=== PATIENT | female | born 1975 | race Caucasian/White ===

== ENCOUNTER → 2016-06-23 | Outpatient (CLI) | payer OTHER ==
--- NOTE | 2016-06-23 09:18 | MM ---
Reason for exam: additional evaluation requested from prior study. Last mammogram was performed 1 year and 3 months ago. History: Patient is postmenopausal and has history of other cancer at age 26. Physical Findings: Nurse Summary: 0.5cm nodule in the left breast at 2 o'clock (nurse dw). MG 3D Diag Mammo W/Cad SUSHILA Bilateral CC and MLO view(s) were taken. Prior study comparison: April 03, 2015, bilateral MG 3d work up w/cad SUSHILA. March 17, 2015, bilateral MG screening mammo w CAD. There are scattered fibroglandular densities. No significant new findings when compared with previous films. These results were verbally communicated with the patient and result sheet given to the patient on 06/23/16. ASSESSMENT: Benign, BI-RAD 2 RECOMMENDATION: Routine screening mammogram of both breasts in 1 year.
--- NOTE | 2016-06-23 09:19 | USB ---
Reason for exam: additional evaluation requested from prior study. History: Patient is postmenopausal and has history of other cancer at age 26. US Breast Limited LT Left breast ultrasound demonstrates no cystic or solid lesion seen at 2 o'clock BB. These results were verbally communicated with the patient and result sheet given to the patient on 06/23/16. ASSESSMENT: Benign, BI-RAD 2 RECOMMENDATION: Routine screening mammogram of both breasts in 1 year.
== END | disposition home or self-care (01) ==
LOC: RADMAMWWP 06:45
PROVIDERS: ATTEND Family Medicine
DX: R92.8 Other abnormal and inconclusive findings on diagnostic imaging of breast (principal)
CPT/HCPCS: 76642; G0204; G0279

== ENCOUNTER → 2016-12-08 | Outpatient (CLI) | payer OTHER ==
--- NOTE | 2016-12-08 09:47 | MR ---
EXAMINATION TYPE: MR angio head wo con DATE OF EXAM: 12/08/2016 COMPARISON: NONE HISTORY: visual changes, headaches TECHNIQUE: Utilizing 3-D [id number] intracranial MRA of the [place] was performed. FINDINGS: The vertebrobasilar and carotid systems are patent. There is no sizable aneurysm or vascular malform ation. A1 segment of the right anterior cerebral artery is somewhat diminutive. Left vertebral arter y dominant. IMPRESSION: 1. No evidence of vascular malformation or sizable aneurysm.
--- NOTE | 2016-12-08 09:55 | MR ---
EXAMINATION TYPE: MR brain wo con DATE OF EXAM: 12/08/2016 COMPARISON: 08/18/2011 HISTORY: visual changes , headaches T1-weighted sagittal, T2, FLAIR, and diffusion axial, and T2 coronal coronal views of the brain are s ubmitted. There is no evidence of acute ischemia. The ventricles, basal cisterns, and sulci overlying the conv exities are consistent with the patient's age. There is no mass effect. Craniocervical junction maintained. Sella turcica has a normal appearance. No cerebellopontine angle mass. There is a nasal septal deviation and changes of mild chronic sinusit is. White matter: There is a single punctate area of abnormal signal in the right parietal white matter a dditional lesion within the external capsule on the right. IMPRESSION: 1. No acute intracranial process. 2. There are 2 nonspecific punctate areas of abnormal signal within the white matter.
== END | disposition home or self-care (01) ==
LOC: RADMRIMAIN 08:40
PROVIDERS: ATTEND Psychiatry & Neurology Neurology
DX: I67.89 Other cerebrovascular disease (principal); R51 Headache; H53.8 Other visual disturbances
CPT/HCPCS: 70544; 70551

== ENCOUNTER → 2016-12-10 | Outpatient (CLI) | payer OTHER ==
--- NOTE | 2016-12-10 22:07 | MR ---
EXAMINATION TYPE: MR santi sandoval con DATE OF EXAM: 12/10/2016 5:57 PM COMPARISON: 06/10/2014 HISTORY: Headaches, Back Pain, Follow Up from Previous MRI on PACS Multiplanar MultiSpin echo imaging of the cervical spine was performed. Comparison: none C2-C3: No evidence for degenerative disc disease. No disc bulge/herniation or protrusion. No Canal stenosis. Foramina are patent bilaterally. C3-C4: No evidence for degenerative disc disease. No disc bulge/herniation or protrusion. No Canal stenosis. Foramina are patent bilaterally. C4-C5: No evidence for degenerative disc disease. No disc bulge/herniation or protrusion. No Canal stenosis. Foramina are patent bilaterally. C5-C6: No evidence for degenerative disc disease. Borderline to minimal posterior central disc bulge. No herniation protrusion or central stenosis. Foramina are patent bilaterally. C6-C7: No evidence for degenerative disc disease. Borderline to minimal posterior central disc bulge. No herniation protrusion or central stenosis. Foramina are patent bilaterally. C7-T1: No evidence for degenerative disc disease. No disc bulge/herniation or protrusion. No Canal stenosis. Foramina are patent bilaterally. Cervical segments are intact. There is normal alignment. Cervical spinal cord is of normal signal. Craniovertebral junction relationships are within normal limits. IMPRESSION: 1. Minimal posterior disc bulging at C5-6 and C6-7. Otherwise unremarkable examination. EXAMINATION TYPE: MR santi sandoval con DATE OF EXAM: 12/10/2016 5:57 PM COMPARISON: NONE HISTORY: Headaches, Back Pain, Follow Up from Previous MRI on PACS Multiplanar, MultiSpin echo imaging of the lumbar spine was performed. L1-L2: Normal disc appearance without desiccation. No herniation, protrusion or disc bulging. No ca nal stenosis is present. Foramina are patent bilaterally. L2-L3: Normal disc appearance without desiccation. No herniation, protrusion or disc bulging. No ca nal stenosis is present. Foramina are patent bilaterally. L3-L4: Moderate disc desiccation. Circumferential disc bulge posterocentrally with mild effacement ve ntral thecal sac. Facet joint arthropathy with bilateral foraminal encroachment left much greater godfrey n right. L4-L5: Moderate disc desiccation. Left paracentral disc protrusion effaces the ventral thecal sac and results in left lateral recess stenosis. Moderate to severe bilateral foraminal encroachment. No mario dence for central stenosis. Facet joint arthropathy. L5-S1: Mild disc desiccation. Smaller posterocentral disc protrusion mildly effaces the ventral theca l sac. No evidence for central stenosis or lateral recess stenosis. Facet joint arthropathy contribut es to mild bilateral foraminal encroachment. Lumbar segments are intact. No paraspinal masses are identified. Conus medullaris has a normal appe arance. IMPRESSION: 1. Degenerative disc disease as discussed. 2. Multilevel foraminal encroachment. 3. L4-5 left paracentral disc protrusion with left lateral recess stenosis.
== END | disposition home or self-care (01) ==
LOC: RADMRIMAIN 16:52
PROVIDERS: ATTEND Psychiatry & Neurology Neurology
DX: M48.06 Spinal stenosis, lumbar region (principal); M50.222 Other cervical disc displacement at C5-C6 level; M51.36 Other intervertebral disc degeneration, lumbar region; M51.26 Other intervertebral disc displacement, lumbar region
CPT/HCPCS: 72141; 72148

== ENCOUNTER 2017-01-05 10:13 | Day surgery (SDC) | payer OTHER ==
[2017-01-04 10:53] VITALS: BMI 28.3
[~2017-01-05 10:13] MED LIST: LIDOCAINE 1% 20 ML VIAL (10MG/ML) FOR IV START INTRADERMA PRN
[2017-01-05 11:02] VITALS: RESP 16; TEMP 98.2
[2017-01-05] MEDS: LACTATED RINGERS 1,000 ML IV SCH ×2 (11:16→11:27)
[2017-01-05] MEDS ORDERED: PROPOFOL 10 MG/ML 100 ML VIAL IV ONE (11:29)
[2017-01-05] MEDS ORDERED: MIDAZOLAM 2 MG/2 ML VIAL ONE (11:29)
[2017-01-05] MEDS ORDERED: fentaNYL (PF) 50 MCG/ML 2 ML AMP ONE (11:29)
--- NOTE | 2017-01-05 11:54 | P.PCN ---
Date of Procedure: 01/05/17 Preoperative Diagnosis: Postoperative Diagnosis: Procedure(s) Performed: BRIEF HISTORY: Patient is a 41-year-old pleasant white female, scheduled for an elective colonoscopy as a part of evaluation of lower abdominal pain, change in bowel habits and chronic intermittent diarrhea for the last several years duration. Recently has been having some rectal prolapse also. She has occasional rectal bleeding. PROCEDURE PERFORMED: Colonoscopy With biopsy PREOPERATIVE DIAGNOSIS: Chronic diarrhea, lower abdominal pain and intermittent rectal prolapse IV sedation per Anesthesia. PROCEDURE: After informed consent was obtained, the patient, was brought into the endoscopy unit. IV sedation was administered by Anesthesia under continuous monitoring. Digital rectal examination was normal. Initially the Olympus CF- 160 flexible video colonoscope was then inserted in the rectum, gradually advanced into the cecum without any difficulty. Careful examination was performed as the scope was gradually being withdrawn. Ileocecal valve and the appendiceal orifice were visualized and appeared normal. Prep was excellent. Terminal ileum appeared normal. Mucosa of the cecum, ascending colon, transverse colon, descending colon, sigmoid colon, and rectum appeared normal. random biopsies were done from ascending and descending colon to rule out microscopic/collagenous colitis. Retroflexion was performed in the rectum and no lesions were seen. The patient tolerated the procedure well. IMPRESSION: Normal-appearing colon from rectum to cecum with no evidence of colitis or colon rectal neoplasia. RECOMMENDATIONS: Findings of this examination were discussed with the patient as well as her family. She was advised to follow with the biopsy results. should be seen in the office in 3-4 weeks.. Implants: Indications for Procedure: Operative Findings: Description of Procedure:
[2017-01-05 12:15] VITALS: BP 126/77; PULSE 90
== END 2017-01-05 12:30 | disposition home or self-care (01) ==
LOC: ORWHC2ENDO 10:13
PROVIDERS: ATTEND Internal Medicine Gastroenterology
DX: R10.30 Lower abdominal pain, unspecified (principal); K52.9 Noninfective gastroenteritis and colitis, unspecified; K62.5 Hemorrhage of anus and rectum; R19.4 Change in bowel habit; K62.3 Rectal prolapse; J45.909 Unspecified asthma, uncomplicated; F32.9 Major depressive disorder, single episode, unspecified; E07.9 Disorder of thyroid, unspecified; Z88.0 Allergy status to penicillin; Z79.899 Other long term (current) drug therapy; Z88.1 Allergy status to other antibiotic agents
CPT/HCPCS: 45380; 88305

== ENCOUNTER → 2017-03-04 | Outpatient (CLI) | payer OTHER ==
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
--- NOTE | 2017-03-04 15:13 | US ---
EXAMINATION TYPE: US venous doppler duplex LE RT DATE OF EXAM: 03/04/2017 2:31 PM COMPARISON: NONE CLINICAL HISTORY: R60.0 EDEMA. Right popliteal fossa pain x 4 days post right arm spider bite. SIDE PERFORMED: Right TECHNIQUE: The lower extremity deep venous system is examined utilizing real time linear array sonog tylor with graded compression, Doppler sonography and color-flow sonography. VESSELS IMAGED: Common Femoral Vein Deep Femoral Vein Greater Saphenous Vein * Femoral Vein Popliteal Vein Small Saphenous Vein * Proximal Calf Veins (* superficial vessels) Right Leg: Negative for DVT Grayscale, color Doppler, spectral Doppler imaging performed of the deep veins of the lower extremiti es. There is normal flow, compressibility, vascular waveforms. IMPRESSION: No sonographic evidence of deep venous thrombosis within the right lower extremity.
== END | disposition home or self-care (01) ==
LOC: RADUSWWP 12:11
PROVIDERS: ATTEND Family Medicine
DX: R60.0 Localized edema (principal); M79.645 Pain in left finger(s)

== ENCOUNTER 2017-11-04 22:44 | Emergency (ER) | payer OTHER ==
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
[2017-11-05 00:18] VITALS: BP 157/92; PULSE 88; RESP 18; TEMP 98.2
== END 2017-11-05 00:19 | disposition home or self-care (01) ==
LOC: EC 22:44
DX: S80.02XA Contusion of left knee, initial encounter (principal); S80.11XA Contusion of right lower leg, initial encounter; S80.12XA Contusion of left lower leg, initial encounter; M54.9 Dorsalgia, unspecified; S80.211A Abrasion, right knee, initial encounter; J45.909 Unspecified asthma, uncomplicated; M19.90 Unspecified osteoarthritis, unspecified site; E07.9 Disorder of thyroid, unspecified; F90.9 Attention-deficit hyperactivity disorder, unspecified type; F41.9 Anxiety disorder, unspecified; F32.9 Major depressive disorder, single episode, unspecified; Z85.41 Personal history of malignant neoplasm of cervix uteri; Z79.891 Long term (current) use of opiate analgesic; Z79.899 Other long term (current) drug therapy; Z88.2 Allergy status to sulfonamides; Z88.0 Allergy status to penicillin; Y03.0XXA Assault by being hit or run over by motor vehicle, initial encounter; Y92.89 Other specified places as the place of occurrence of the external cause
CPT/HCPCS: 72100; 99284

== ENCOUNTER → 2017-11-09 | Outpatient (CLI) | payer OTHER ==
--- NOTE | 2017-11-10 14:39 | MM ---
Reason for exam: screening (asymptomatic). Last mammogram was performed 1 year and 5 months ago. History: Patient is postmenopausal and has history of other cancer at age 26. Physical Findings: A clinical breast exam by your physician is recommended on an annual basis and results should be correlated with mammographic findings. MG Screening Mammo w CAD Bilateral CC and MLO view(s) were taken. Prior study comparison: June 23, 2016, bilateral MG 3d diag mammo w/cad SUSHILA. April 03, 2015, bilateral MG 3d work up w/cad SUSHILA. The breast tissue is heterogeneously dense. This may lower the sensitivity of mammography. No suspicious abnormality. No significant changes when compared with prior studies. ASSESSMENT: Negative, BI-RAD 1 RECOMMENDATION: Routine screening mammogram of both breasts in 1 year.
== END | disposition home or self-care (01) ==
LOC: RADMAMWWP 07:49
PROVIDERS: ATTEND Family Medicine
DX: Z12.31 Encounter for screening mammogram for malignant neoplasm of breast (principal)
CPT/HCPCS: 77067

== ENCOUNTER 2017-11-17 13:16 | Emergency (ER) | payer OTHER ==
[2017-11-17 13:24] VITALS: RESP 18; TEMP 99.4
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
[2017-11-17 13:53] VITALS: BP 125/97; PULSE 84
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
== END 2017-11-17 14:22 | disposition home or self-care (01) ==
LOC: EC 13:16
DX: M25.461 Effusion, right knee (principal); M25.462 Effusion, left knee; S80.11XA Contusion of right lower leg, initial encounter; S80.12XA Contusion of left lower leg, initial encounter; S80.212A Abrasion, left knee, initial encounter; J45.909 Unspecified asthma, uncomplicated; M19.90 Unspecified osteoarthritis, unspecified site; E07.9 Disorder of thyroid, unspecified; F90.9 Attention-deficit hyperactivity disorder, unspecified type; F41.9 Anxiety disorder, unspecified; F32.9 Major depressive disorder, single episode, unspecified; Z85.41 Personal history of malignant neoplasm of cervix uteri; Z79.891 Long term (current) use of opiate analgesic; Z79.899 Other long term (current) drug therapy; Z88.2 Allergy status to sulfonamides; Z88.0 Allergy status to penicillin; W01.0XXA Fall on same level from slipping, tripping and stumbling without subsequent striking against object, initial encounter; Y93.01 Activity, walking, marching and hiking
CPT/HCPCS: 99283

== ENCOUNTER 2017-12-29 16:16 | Emergency (ER) | payer OTHER ==
[2017-12-29 16:44] VITALS: BP 119/85; PULSE 98; RESP 18; TEMP 98.3
[2017-12-29 16:57] LABS: Basophils # (A) 0.1 k/uL (0-0.2); Basophils % (A) 1 %; Eosinophils # (A) 0.1 k/uL (0-0.7); Eosinophils % (A) 1 %; HCT 42.9 % (34.0-46.0); HGB 14.2 gm/dL (11.4-16.0); Lymphocytes # (A) 2.3 k/uL (1.0-4.8); Lymphocytes % (A) 35 %; MCH 32.2 pg (25.0-35.0); MCHC 33.2 g/dL (31.0-37.0); MCV 97.2 fL (80.0-100.0); Mean Platelet Volume 6.4; Monocytes # (A) 0.3 k/uL (0-1.0); Monocytes % (A) 5 %; Neutrophils # (A) 3.7 k/uL (1.3-7.7); Neutrophils % (A) 56 %; Platelet Count 322 k/uL (150-450); RBC 4.41 m/uL (3.80-5.40); RDW 11.8 % (11.5-15.5); WBC 6.6 k/uL (3.8-10.6)
[2017-12-29 17:07] LABS: ALT 41 U/L (9-52); AST 33 U/L (14-36); Albumin 4.7 g/dL (3.5-5.0); Alkaline Phosphatase 96 U/L (38-126); Anion Gap 14 mmol/L; Blood Urea Nitrogen 19 mg/dL (7-17); Calcium 9.4 mg/dL (8.4-10.2); Carbon Dioxide 16 mmol/L (22-30); Chloride 107 mmol/L (98-107); Glucose 99 mg/dL (74-99); Magnesium 2.1 mg/dL (1.6-2.3); Potassium 3.6 mmol/L (3.5-5.1); Sodium 137 mmol/L (137-145); Total Bilirubin 0.2 mg/dL (0.2-1.3); Total Protein 7.7 g/dL (6.3-8.2)
[2017-12-29 17:09] LABS: Creatine Kinase 54 U/L (30-135)
--- NOTE | 2017-12-29 17:11 | XR ---
EXAMINATION TYPE: XR chest 2V DATE OF EXAM: 12/29/2017 COMPARISON: NONE HISTORY: Difficulty breathing TECHNIQUE: Frontal and lateral views of the chest are obtained. FINDINGS: Heart and mediastinum are normal. Lungs are clear. Diaphragm is normal. Bony thorax is int act. IMPRESSION: Normal chest.
[2017-12-29 17:22] LABS: Creatine Kinase MB 0.4 ng/mL (0.0-2.4); Troponin I <0.012 ng/mL (0.000-0.034)
[2017-12-29 17:54] LABS: D-Dimer <0.17 mg/L FEU (<0.60); Partial Thromboplastin Time 22.2 sec (22.0-30.0); Prothrombin Time 9.7 sec (9.0-12.0)
== END 2017-12-29 18:21 | disposition left against medical advice (07) ==
LOC: EC 16:16
DX: R07.9 Chest pain, unspecified (principal)
CPT/HCPCS: 36415; 71046; 80053; 82550; 82553; 83735; 84484; 85025; 85379; 85610; 85730; 93005; 99499

== ENCOUNTER 2019-01-19 10:23 | Emergency (ER) | payer OTHER ==
[2019-01-19 10:35] VITALS: BP 151/95; PULSE 94; RESP 18; TEMP 98
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
--- NOTE | 2019-01-19 11:31 | XR ---
EXAMINATION TYPE: XR hand complete LT DATE OF EXAM: 01/19/2019 COMPARISON: 03/04/2017 HISTORY: Pain, lateral and distal third metatarsal TECHNIQUE: 3 view left hand FINDINGS: No acute fractures or dislocations are evident. Joint spaces are preserved. There is soft tissue swelling at the third metacarpophalangeal joint space. IMPRESSION: 1. Soft tissue swelling metacarpal phalangeal joint space. 2. No acute osseous abnormality. 3. Follow-up exams can be performed 7-10 days from acute trauma for continued pain
== END 2019-01-19 12:01 | disposition home or self-care (01) ==
LOC: EC 10:23
DX: M79.642 Pain in left hand (principal); S69.92XA Unspecified injury of left wrist, hand and finger(s), initial encounter; M79.89 Other specified soft tissue disorders; J45.909 Unspecified asthma, uncomplicated; F41.9 Anxiety disorder, unspecified; F31.9 Bipolar disorder, unspecified; M19.90 Unspecified osteoarthritis, unspecified site; G89.29 Other chronic pain; M54.5 Low back pain; F90.9 Attention-deficit hyperactivity disorder, unspecified type; K58.9 Irritable bowel syndrome, unspecified; Z79.891 Long term (current) use of opiate analgesic; Z79.899 Other long term (current) drug therapy; Z79.51 Long term (current) use of inhaled steroids; Z88.0 Allergy status to penicillin; Z88.2 Allergy status to sulfonamides; Z88.8 Allergy status to other drugs, medicaments and biological substances; Z85.41 Personal history of malignant neoplasm of cervix uteri; Z87.828 Personal history of other (healed) physical injury and trauma; Z98.890 Other specified postprocedural states; V80.010A Animal-rider injured by fall from or being thrown from horse in noncollision accident, initial encounter
CPT/HCPCS: 99283

== ENCOUNTER 2019-02-19 18:56 | Emergency (ER) | payer OTHER ==
[2019-02-19 20:37] VITALS: RESP 18
--- NOTE | 2019-02-19 21:25 | XR ---
EXAMINATION TYPE: XR chest 2V DATE OF EXAM: 02/19/2019 COMPARISON: 12/29/2017 HISTORY: Cough TECHNIQUE: Frontal and lateral views of the chest are obtained. FINDINGS: Heart and mediastinum are normal. Lungs are clear. Diaphragm is normal. Bony thorax appear s normal. IMPRESSION: Normal chest. No change.
--- NOTE | 2019-02-19 21:28 | XR ---
EXAMINATION TYPE: XR hand limited LT DATE OF EXAM: 02/19/2019 COMPARISON: 01/19/2019 HISTORY: Pain TECHNIQUE: 2 views FINDINGS: Metacarpals are intact. I see no fracture nor dislocation. There are no erosions. Joint spa graeme are normal. IMPRESSION: Negative left hand exam. No change.
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
[2019-02-19 22:36] VITALS: BP 128/74; PULSE 62; TEMP 99.1
== END 2019-02-19 22:35 | disposition home or self-care (01) ==
LOC: EC 18:56
DX: J06.9 Acute upper respiratory infection, unspecified (principal); M79.642 Pain in left hand; J45.909 Unspecified asthma, uncomplicated; M19.90 Unspecified osteoarthritis, unspecified site; F32.9 Major depressive disorder, single episode, unspecified; F41.9 Anxiety disorder, unspecified; F90.9 Attention-deficit hyperactivity disorder, unspecified type; Z88.0 Allergy status to penicillin; Z88.2 Allergy status to sulfonamides; Z79.1 Long term (current) use of non-steroidal anti-inflammatories (NSAID); Z79.891 Long term (current) use of opiate analgesic; Z79.899 Other long term (current) drug therapy; Z85.41 Personal history of malignant neoplasm of cervix uteri; Z90.710 Acquired absence of both cervix and uterus
CPT/HCPCS: 71046; 99283

== ENCOUNTER 2019-03-06 19:06 | Emergency (ER) | payer OTHER ==
[2019-03-06 19:11] VITALS: TEMP 97.6
[2019-03-06] MEDS ORDERED: DIPH,PERTUS(ACELL)TETVAC-LF 0.5 ML VIAL IM ONE (20:27)
[2019-03-06] MEDS ORDERED: LIDOCAINE 1% INJ 10MG/ML (20 ML MDV) SQ ONE (20:28)
--- NOTE | 2019-03-06 21:18 | XR ---
EXAMINATION TYPE: XR forearm LT DATE OF EXAM: 03/06/2019 CLINICAL HISTORY: Injury with pain. TECHNIQUE: Two views of the left forearm are obtained. COMPARISON: None. FINDINGS: There is no acute fracture or dislocation seen in the left radius or ulna. The elbow and wrist joints appear within normal limits. The overlying soft tissue appears within normal limits. IMPRESSION: There is no acute fracture or dislocation seen in the left radius or ulna.
--- NOTE | 2019-03-06 21:18 | XR ---
EXAMINATION TYPE: XR pelvis AP view, XR femur LT DATE OF EXAM: 03/06/2019 CLINICAL HISTORY: Pelvic and left femur pain after injury. TECHNIQUE: A single AP view of the pelvis is obtained. Two views of the left femur are obtained. COMPARISON: None. FINDINGS: There is no acute fracture/dislocation evident in the pelvis. The hip and sacroiliac joints appear s ymmetric and unremarkable. Scattered pelvic phleboliths are present bilaterally. Two views of left femur show no acute fracture or dislocation. No focal lytic or sclerotic lesion se en in the left femur. Visualized left knee joint thought within normal limits. The overlying soft ti ssue is unremarkable. IMPRESSION: There is no acute fracture or dislocation in the pelvis or left femur.
--- NOTE | 2019-03-06 21:19 | XR ---
EXAMINATION TYPE: XR hand complete LT DATE OF EXAM: 03/06/2019 CLINICAL HISTORY: Pain after injury. TECHNIQUE: Frontal, lateral and oblique images of the left hand are obtained. COMPARISON: Left hand x-ray February 19, 2019. FINDINGS: There is no acute fracture/dislocation evident in the left hand. The joint spaces in the l eft hand appear within normal limits. The overlying soft tissue appears unremarkable. IMPRESSION: There is no acute fracture or dislocation in the left hand. No significant change from p rior.
--- NOTE | 2019-03-06 21:26 | CT ---
EXAMINATION TYPE: CT brain netoine wo con DATE OF EXAM: 03/06/2019 COMPARISON: 02/24/2012 HISTORY: fell off horse, bruising around left eye. CT DLP: combined DLP 903 mGycm Automated exposure control for dose reduction was used. TECHNIQUE: CT scan of the head and cervical spine are performed without contrast. FINDINGS: There is no acute intracranial hemorrhage, mass effect, or midline shift identified. The ventricles and sulci are within normal limits in size. The globes are intact and the visualized sin uses are clear. Cervical spine is visualized in its entirety from C1 through upper thoracic levels and demonstrates s atisfactory alignment without evidence of acute fracture or dislocation. Prevertebral soft tissue ap pears within normal limits. The C1-C2 articulation is unremarkable. IMPRESSION: 1. There is no acute fracture or dislocation evident in the cervical spine. 2. No acute intracranial hemorrhage, mass effect, or midline shift is seen.
--- NOTE | 2019-03-06 21:29 | CT ---
EXAMINATION TYPE: CT orbits wo con DATE OF EXAM: 03/06/2019 COMPARISON: 10/08/2009 HISTORY: fell off horse, bruising around left eye. CT DLP: combined DLP 903 mGycm Automated exposure control for dose reduction was used. FINDINGS: Evaluation of the left orbit and the right orbit and the adjacent facial skeleton is negative for fra cture or malalignment. The orbits and paranasal sinuses are intact. There is, however, preseptal sided soft tissue swelling IMPRESSION: SOFT TISSUE SWELLING OVER THE LEFT ORBIT.
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
[2019-03-06 21:56] VITALS: BP 124/77; PULSE 77; RESP 18
== END 2019-03-06 22:17 | disposition home or self-care (01) ==
LOC: EC 19:06
DX: S81.812A Laceration without foreign body, left lower leg, initial encounter (principal); S00.12XA Contusion of left eyelid and periocular area, initial encounter; J45.909 Unspecified asthma, uncomplicated; F41.9 Anxiety disorder, unspecified; F31.9 Bipolar disorder, unspecified; F43.10 Post-traumatic stress disorder, unspecified; Z79.899 Other long term (current) drug therapy; Z88.0 Allergy status to penicillin; Z88.1 Allergy status to other antibiotic agents; Z88.2 Allergy status to sulfonamides; Z85.41 Personal history of malignant neoplasm of cervix uteri; V80.010A Animal-rider injured by fall from or being thrown from horse in noncollision accident, initial encounter; Y93.52 Activity, horseback riding; Z23 Encounter for immunization
CPT/HCPCS: 72170; 73552; 73090; 73130; 72125; 70450; 70480; 90715; 99284; 12002; 90471; J2001

== ENCOUNTER 2019-09-04 12:50 | Emergency (ER) | payer OTHER ==
[2019-09-04 12:55] VITALS: BP 118/60; PULSE 73; RESP 20; TEMP 98.1
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
--- NOTE | 2019-09-04 13:41 | XR ---
EXAMINATION TYPE: XR knee complete LT DATE OF EXAM: 09/04/2019 COMPARISON: NONE HISTORY: 43-year-old female with fall and pain TECHNIQUE: 3 views FINDINGS: Small suprapatellar knee joint effusion. Extensor mechanism is intact. Mild degenerative spurring in the patellofemoral compartment. No acute fracture, subluxation, or dislocation. IMPRESSION: 1. No acute osseous abnormality seen. 2. However, there is a small underlying knee joint effusion that could be reactive. If concern for in ternal derangement, MRI can be performed.
== END 2019-09-04 14:05 | disposition home or self-care (01) ==
LOC: EC 12:50
DX: M25.562 Pain in left knee (principal); J45.909 Unspecified asthma, uncomplicated; M19.90 Unspecified osteoarthritis, unspecified site; F90.9 Attention-deficit hyperactivity disorder, unspecified type; F41.9 Anxiety disorder, unspecified; F32.9 Major depressive disorder, single episode, unspecified; F43.10 Post-traumatic stress disorder, unspecified; Z85.41 Personal history of malignant neoplasm of cervix uteri; Z79.891 Long term (current) use of opiate analgesic; Z79.899 Other long term (current) drug therapy; Z88.2 Allergy status to sulfonamides; Z88.0 Allergy status to penicillin
CPT/HCPCS: 99283

== ENCOUNTER → 2019-10-05 | Outpatient (CLI) | payer OTHER ==
[2019-10-05 10:25] LABS: Basophils # (A) 0.1 k/uL (0-0.2); Basophils % (A) 1 %; Eosinophils % (A) 0 %; HCT 45.4 % (34.0-46.0); HGB 14.3 gm/dL (11.4-16.0); Lymphocytes # (A) 2.3 k/uL (1.0-4.8); Lymphocytes % (A) 22 %; MCH 32.5 pg (25.0-35.0); MCHC 31.6 g/dL (31.0-37.0); MCV 102.9 fL (80.0-100.0); Macrocytosis Slight; Mean Platelet Volume 6.6; Monocytes # (A) 0.4 k/uL (0-1.0); Monocytes % (A) 4 %; Neutrophils # (A) 7.4 k/uL (1.3-7.7); Neutrophils % (A) 71 %; Platelet Count 311 k/uL (150-450); RBC 4.41 m/uL (3.80-5.40); RDW 12.1 % (11.5-15.5); WBC 10.3 k/uL (3.8-10.6)
[2019-10-05 10:36] LABS: Potassium 4.2 mmol/L (3.5-5.1)
== END | disposition home or self-care (01) ==
LOC: LABPAT 09:06
PROVIDERS: ATTEND Orthopaedic Surgery
DX: Z01.818 Encounter for other preprocedural examination (principal); M23.92 Unspecified internal derangement of left knee
CPT/HCPCS: 80051; 85025

== ENCOUNTER → 2019-10-23 | Outpatient (CLI) | payer OTHER | END | disposition home or self-care (01) | LOC: LABWHC1 10:54 | PROVIDERS: ATTEND Orthopaedic Surgery | DX: Z11.59 Encounter for screening for other viral diseases (principal) ==

== ENCOUNTER 2019-10-25 11:21 | Day surgery (SDC) | payer OTHER ==
[2019-10-24 10:25] VITALS: BMI 28.8
--- NOTE | 2019-10-24 14:13 | HP ---
HISTORY AND PHYSICAL DATE OF SURGERY: 10/25/2019 Amanda Johnson is a 43-year-old patient seen with progressive left knee pain. We discussed options. The patient elected to proceed with arthroscopy. Consent was obtained. PAST MEDICAL HISTORY: Anxiety, hypothyroidism, gastroesophageal reflux disease, chronic opioid use. PAST SURGICAL HISTORY: Carpal tunnel release, section, cholecystectomy, knee arthroscopy. DAILY MEDICATIONS: Adderall, BuSpar, Naprosyn, [place], Prilosec, Synthroid, Ventolin inhaler. ALLERGIES: AUGMENTIN. SOCIAL HISTORY: She denies current tobacco use. PHYSICAL EVALUATION OF THE LEFT KNEE: Range of motion is -2/3 to 90, mild to moderate effusion. Tenderness along the medial joint line. Positive medial Lulu's. Ligaments stable. Hip rotation without pain. Distal neurovascular exam intact. LEFT KNEE RADIOGRAPHS: Right knee radiographs revealed moderate medial compartment osteoarthritis. IMPRESSION: 1. Internal derangement, left knee with medial meniscal tear. 2. Hypothyroidism. 3. Gastroesophageal reflux disease. 4. Chronic opioid use. PLAN: Left knee arthroscopy with partial meniscectomy and partial synovectomy and debridement. MMODL / IJN: [id number] /
[~2019-10-25 11:21] MED LIST changes: +CLINDAMYCIN 900 MG in DEXTROSE 5% IN WATER 50 ML IVPB ONE; +DEXAMETHASONE SOD PHOSPHATE 10 MG/ML 1 ML VIAL IV ONE; +HYDROmorphone 0.5 MG/0.5 ML SYRINGE IVP PRN; +LACTATED RINGERS 1,000 ML IV SCH; -LIDOCAINE 1% 20 ML VIAL (10MG/ML) FOR IV START INTRADERMA PRN; +MIDAZOLAM 2 MG/2 ML VIAL IV PRN; +ONDANSETRON 4 MG/2 ML VIAL IVP ONE
[2019-10-25] MEDS ORDERED: LIDOCAINE 1% (10MG/ML) FOR IV START INTRADERMA ONE (12:08)
[2019-10-25] MEDS ORDERED: MIDAZOLAM 2 MG/2 ML VIAL ONE (13:13)
[2019-10-25] MEDS ORDERED: SUCCINYLCHOLINE CHLORIDE 100 MG/5 ML SYR IV ONE (13:13)
[2019-10-25] MEDS ORDERED: LIDOCAINE 1% INJ 10MG/ML (20 ML MDV) ONE (13:13)
[2019-10-25] MEDS ORDERED: KETOROLAC 30 MG/ML 1 ML VIAL ONE (13:13)
[2019-10-25] MEDS ORDERED: fentaNYL (PF) 50 MCG/ML 2 ML AMP ONE (13:13)
[2019-10-25] MEDS ORDERED: PROPOFOL 10 MG/ML 20 ML VIAL IV ONE (13:13)
[2019-10-25] MEDS ORDERED: LACTATED RINGERS 1,000 ML IV ONE (13:16)
[2019-10-25] MEDS ORDERED: BUPIVACAINE (PF) 0.25% 30 ML VIAL SQ ONE ×2 (13:23→13:47)
--- NOTE | 2019-10-25 14:00 | P.OP ---
Date of Procedure: 10/25/19 Preoperative Diagnosis: Internal derangement left knee Postoperative Diagnosis: 1. Tear medial meniscus left knee 2. Grade 2/3 chondromalacia medial femoral condyle left knee 3. Reactive synovitis medial, lateral and suprapatellar compartments left knee Procedure(s) Performed: 1. Arthroscopic partial medial meniscectomy left knee 2. Arthroscopic chondroplasty medial femoral condyle left knee 3. Arthroscopic partial synovectomy medial, lateral and suprapatellar compartments left knee Anesthesia: LAURIEA, local Surgeon: Zuhair Haynes Estimated Blood Loss (ml): 7 Pathology: none sent Condition: stable Disposition: PACU Indications for Procedure: 43-year-old patient seen with progressive left knee pain. After having treatment options discussed, she elected to proceed with arthroscopy. Operative Findings: See description of procedure Description of Procedure: Patient was taken to the operative suite. Patient underwent a general anesthetic by the department of anesthesia. Patient was given preoperative anti biotics. The left lower extremity was placed in a well-padded arthroscopic leg babin. The left leg was prepped and draped in the normal sterile orthopedic fashion. A lateral parapatellar and suprapatellar incision was made. Trochars were inserted. Arthroscopy was initiated. Suprapatellar pouch revealed diffuse thick reactive synovitis. The patellofemoral joint appeared to articulate congruently. There with grade 1/2 chondromalacia of the patella. The scope was guided into the medial gutter. No loose bodies or plica were identified. The scope was then guided into the medial compartment. A medial parapatellar incision was made. Trocar inserted followed by probe. There was a radial tear posterior horn medial meniscus. There were grade 2/3 chondral malacia changes of the medial femoral condyle with some osteochondral flap tears present. There was reactive synovitis anteriorly. I performed a partial medial meniscectomy getting down to stable meniscal tissue. I performed a chondroplasty of the medial femoral condyle getting down to stable osteochondral tissue. I performed a partial synovectomy decompressing reactive synovitis. Shaver was removed. The residual meniscus was stable. The residual osteochondral surface was stable. There was good decompression of the synovitis. Scope and probe were then guided into the intercondylar notch. Cruciates were identified, probed and found to be stable. The scope and probe were then guided into lateral compartment. Lateral meniscus was probed and found to be stable. There was no chondromalacia. There was some reactive synovitis anteriorly. I performed a partial synovectomy decompressing the reactive synovitis. The shaver was removed. There was good decompression of synovitis. The scope was in guided back into the suprapatellar compartment. I introduced a motorized shaver into the super compartment. I debrided some piecemeal fragments of meniscus I encountered. I performed a partial synovectomy. The shaver was removed. I took one more look on the entire knee, no residual debris. Instruments were now removed from the joint. The joint was infiltrated with .25% Marcaine. Steri- Strips were applied to the portal sites. Sterile dressings were applied. The patient was placed into a DENI hose. No tourniquet was utilized. The patient was awakened, transferred to a bed and taken to recovery stable satisfactory condition.
[2019-10-25 14:02] VITALS: TEMP 97
[2019-10-25] MEDS ORDERED: HYDROcodone/APAP 10-325MG 1 EACH TAB PO ONE ×2 (14:52→15:03)
[2019-10-25 15:20] VITALS: RESP 16
[2019-10-25 15:28] VITALS: BP 117/79; PULSE 90
== END 2019-10-25 15:49 | disposition home or self-care (01) ==
LOC: OR 11:21
PROVIDERS: ATTEND Orthopaedic Surgery
DX: M23.222 Derangement of posterior horn of medial meniscus due to old tear or injury, left knee (principal); M94.262 Chondromalacia, left knee; M65.862 Other synovitis and tenosynovitis, left lower leg; J45.909 Unspecified asthma, uncomplicated; M19.90 Unspecified osteoarthritis, unspecified site; F90.9 Attention-deficit hyperactivity disorder, unspecified type; F41.9 Anxiety disorder, unspecified; F32.9 Major depressive disorder, single episode, unspecified; K58.1 Irritable bowel syndrome with constipation; K21.9 Gastro-esophageal reflux disease without esophagitis; E03.9 Hypothyroidism, unspecified; Z85.41 Personal history of malignant neoplasm of cervix uteri; Z88.0 Allergy status to penicillin; Z90.710 Acquired absence of both cervix and uterus; Z90.49 Acquired absence of other specified parts of digestive tract; Z79.890 Hormone replacement therapy; Z79.891 Long term (current) use of opiate analgesic; Z79.899 Other long term (current) drug therapy
CPT/HCPCS: 29881; J2250; J1100; J2405; J2001; J3010; J1885; J0330; J2704

== ENCOUNTER → 2020-01-24 | Outpatient (CLI) | payer OTHER ==
[2020-01-24 19:18] LABS: C Reactive Protein <0.4 mg/dL (0.0-0.8); Rheumatoid Factor, Qnt 8 IU/mL (0-15)
== END | disposition home or self-care (01) ==
LOC: LABWHC1 14:56
PROVIDERS: ATTEND Physician Assistant
DX: H16.9 Unspecified keratitis (principal); H53.8 Other visual disturbances; H53.19 Other subjective visual disturbances
CPT/HCPCS: 36415; 85652; 86038; 86140; 86431

== ENCOUNTER 2020-09-01 09:25 | Day surgery (SDC) | payer OTHER ==
[2020-08-28 10:35] VITALS: BMI 32.2
[~2020-09-01 09:25] MED LIST changes: -CLINDAMYCIN 900 MG in DEXTROSE 5% IN WATER 50 ML IVPB ONE; -DEXAMETHASONE SOD PHOSPHATE 10 MG/ML 1 ML VIAL IV ONE; -HYDROmorphone 0.5 MG/0.5 ML SYRINGE IVP PRN; +LIDOCAINE 1% (10MG/ML) FOR IV START INTRADERMA PRN; -MIDAZOLAM 2 MG/2 ML VIAL IV PRN; -ONDANSETRON 4 MG/2 ML VIAL IVP ONE
[2020-09-01 09:55] VITALS: RESP 18; TEMP 97.3
[2020-09-01] MEDS ORDERED: PROPOFOL 10 MG/ML 20 ML VIAL IV ONE (11:24)
[2020-09-01] MEDS ORDERED: LIDOCAINE 1% INJ 10MG/ML (20 ML MDV) ONE (11:24)
--- NOTE | 2020-09-01 11:39 | P.PCN ---
Date of Procedure: 09/01/20 Procedure(s) Performed: BRIEF HISTORY: Patient is a 44-year-old, pleasant, white female scheduled for an upper endoscopy as a part of evaluation of surveillance of GERD/chronic cough and intermittent dysphagia to solids. His been on omeprazole 20 mg daily and recently was increased to 20 mg twice daily.. PROCEDURE PERFORMED: Esophagogastroduodenoscopy with biopsy. PREOPERATIVE DIAGNOSIS: GERD/chronic cough and intermittent dysphagia to solids. IV sedation per anesthesia. PROCEDURE: After informed consent was obtained, the patient was brought into the endoscopy unit. IV sedation was administered by Anesthesia under continuous monitoring. Initially the Olympus GIF-140 video endoscope was inserted into the mouth. Esophagus intubated without any difficulty. It was gradually advanced into the stomach and duodenum and carefully examined. The bulb and the second part of the duodenum appeared normal. Biopsies were done from the duodenum to rule out celiac disease. The scope at this time was withdrawn to the stomach, adequately insufflated with air, and upon careful examination, mucosa of the antrum had mild gastritis and biopsies were done from this area., body, cardia and the fundus appeared normal. The scope was then withdrawn into the esophagus. The GE junction was located at 39 cm from the incisors. It appeared irregular but there was no erythema erosions or ulcerations. The rest of the esophagus appeared normal. There were no erosions or ulcerations seen , biopsies were done from the distal esophagus and the patient tolerated the procedure well. IMPRESSION: 1. Mild antral gastritis. 2. Irregular GE junction but no evidence of esophagitis or Capone's esophagus. RECOMMENDATIONS: The findings of this examination were discussed with the patient is a family. She was advised to follow with the biopsy results. She will continue with Prilosec 20 mg twice daily and follow antireflux measures. She'll be seen in office in 2-3 months.
[2020-09-01 11:58] VITALS: BP 127/70; PULSE 79
== END 2020-09-01 12:30 | disposition home or self-care (01) ==
LOC: ORWHC2ENDO 09:25
PROVIDERS: ATTEND Internal Medicine Gastroenterology
DX: K29.50 Unspecified chronic gastritis without bleeding (principal); K21.00 Gastro-esophageal reflux disease with esophagitis, without bleeding; R13.10 Dysphagia, unspecified; J45.909 Unspecified asthma, uncomplicated; E07.9 Disorder of thyroid, unspecified; G43.909 Migraine, unspecified, not intractable, without status migrainosus; K58.9 Irritable bowel syndrome, unspecified; F41.9 Anxiety disorder, unspecified; F31.9 Bipolar disorder, unspecified; F43.10 Post-traumatic stress disorder, unspecified; Z88.0 Allergy status to penicillin
CPT/HCPCS: 88305; 43239; J2001; J2704

== ENCOUNTER 2020-10-08 10:55 | Emergency (ER) | payer OTHER ==
[2020-10-08 11:25] VITALS: BP 120/75; PULSE 85; RESP 18; TEMP 98.7
--- NOTE | 2020-10-08 12:03 | XR ---
EXAMINATION TYPE: XR knee 4V LT DATE OF EXAM: 10/08/2020 COMPARISON: 09/04/2019 HISTORY: 44-year-old female with fall and pain TECHNIQUE: 3 views FINDINGS: There is a small knee joint effusion. Extensor mechanism is intact. The patella remains karla ropriately situated along the trochlear groove. No acute fracture, subluxation, dislocation. IMPRESSION: No acute osseous abnormality seen. Given a small joint effusion, if concern for internal derangement, MRI can be considered.
[2020-10-08] MEDS ORDERED: KETOROLAC 15 MG/ML 1 ML VIAL IM STA (12:08)
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
== END 2020-10-08 13:14 | disposition home or self-care (01) ==
LOC: EC 10:55
DX: M25.562 Pain in left knee (principal); F90.9 Attention-deficit hyperactivity disorder, unspecified type; J45.909 Unspecified asthma, uncomplicated; K21.9 Gastro-esophageal reflux disease without esophagitis; K58.9 Irritable bowel syndrome, unspecified; F41.9 Anxiety disorder, unspecified; M19.90 Unspecified osteoarthritis, unspecified site; Z79.1 Long term (current) use of non-steroidal anti-inflammatories (NSAID); Z85.41 Personal history of malignant neoplasm of cervix uteri; Z88.0 Allergy status to penicillin; Z88.1 Allergy status to other antibiotic agents; W10.9XXA Fall (on) (from) unspecified stairs and steps, initial encounter
CPT/HCPCS: 73564; 99283; 96372; L1830 ×2; J1885

== ENCOUNTER → 2020-11-20 | Outpatient (CLI) | payer OTHER | END | disposition home or self-care (01) ==

== ENCOUNTER → 2021-01-08 | Outpatient (CLI) | payer OTHER ==
[2021-01-08 16:13] LABS: Basophils % (A) 0 %; Eosinophils # (A) 0.1 k/uL (0-0.7); Eosinophils % (A) 1 %; HCT 43.4 % (34.0-46.0); HGB 14.4 gm/dL (11.4-16.0); Lymphocytes # (A) 2.3 k/uL (1.0-4.8); Lymphocytes % (A) 26 %; MCH 34.8 pg (25.0-35.0); MCHC 33.1 g/dL (31.0-37.0); MCV 105.2 fL (80.0-100.0); Macrocytosis Slight; Monocytes # (A) 0.5 k/uL (0-1.0); Monocytes % (A) 6 %; Neutrophils # (A) 5.7 k/uL (1.3-7.7); Neutrophils % (A) 64 %; Platelet Count 264 k/uL (150-450); RBC 4.12 m/uL (3.80-5.40); RDW 13.1 % (11.5-15.5); WBC 8.9 k/uL (3.8-10.6)
[2021-01-08 16:25] LABS: Potassium 4.1 mmol/L (3.5-5.1)
== END | disposition home or self-care (01) ==
LOC: LABPAT 15:54
PROVIDERS: ATTEND Orthopaedic Surgery
DX: Z01.812 Encounter for preprocedural laboratory examination (principal); M23.92 Unspecified internal derangement of left knee
CPT/HCPCS: 80051; 85025

== ENCOUNTER 2021-02-05 11:04 | Day surgery (SDC) | payer OTHER ==
[2021-02-02 13:26] VITALS: BMI 30.4
--- NOTE | 2021-02-04 19:35 | HP ---
HISTORY AND PHYSICAL REASON FOR ADMISSION: Surgery scheduled for 02/05/2021 HISTORY OF PRESENT ILLNESS: Amanda Johnson is a 45-year-old patient seen with progressive left knee pain. We discussed options and elected to proceed with arthroscopy. Consent was obtained. PAST MEDICAL HISTORY: Hypothyroidism, gastroesophageal reflux disease, anxiety. PAST SURGICAL HISTORY: Carpal tunnel release, cholecystectomy, section, knee arthroscopy. MEDICATIONS: Adderall, Claritin, Naprosyn, Shelby, Prilosec, Reglan, Synthroid, Topamax, Ventolin inhaler. ALLERGIES: AUGMENTIN. SOCIAL HISTORY: She denies tobacco use. PHYSICAL EVALUATION OF THE LEFT KNEE: Range of motion 0-120. She has a mild effusion. She is tender along the medial joint line. Positive medial Lulu's. Ligaments are stable. Hip rotation without pain. Distal neurovascular exam intact. RADIOGRAPHS: Radiographs of the left knee reveal mild osteoarthritis. MRI left knee revealed effusion, popliteal cyst, mild osteoarthritic changes. IMPRESSION: 1. Internal derangement of left knee with osteochondral tear. 2. Hypothyroidism. 3. Gastroesophageal reflux disease. PLAN: Left knee arthroscopy with chondroplasty and debridement. Surgery, 02/05/2021. MMODL / IJN: [id number] /
[~2021-02-05 11:04] MED LIST changes: +CLINDAMYCIN 900 MG in DEXTROSE 5% IN WATER 50 ML IVPB PRN; +DEXAMETHASONE SOD PHOSPHATE 4 MG/ML 1 ML VIAL IV ONE; +HYDROmorphone 0.5 MG/0.5 ML SYRINGE IVP PRN; -LIDOCAINE 1% (10MG/ML) FOR IV START INTRADERMA PRN; +ONDANSETRON 4 MG/2 ML VIAL IVP ONE
[2021-02-05] MEDS ORDERED: HYDROmorphone (PF) 1 MG/ML ONE (13:07)
[2021-02-05] MEDS ORDERED: KETOROLAC 15 MG/ML 1 ML VIAL ONE (13:07)
[2021-02-05] MEDS ORDERED: fentaNYL (PF) 50 MCG/ML 2 ML AMP ONE (13:07)
[2021-02-05] MEDS ORDERED: MIDAZOLAM 2 MG/2 ML VIAL ONE (13:07)
[2021-02-05] MEDS ORDERED: LIDOCAINE 1% INJ 10MG/ML (20 ML MDV) ONE (13:07)
[2021-02-05] MEDS ORDERED: SUCCINYLCHOLINE CHLORIDE 100 MG/5 ML SYR IV ONE (13:07)
[2021-02-05] MEDS ORDERED: PROPOFOL 10 MG/ML 20 ML VIAL IV ONE (13:07)
[2021-02-05] MEDS ORDERED: BUPIVACAINE (PF) 0.25% 30 ML VIAL INTRAARTIC ONE (13:38)
--- NOTE | 2021-02-05 14:01 | P.OP ---
Date of Procedure: 02/05/21 Preoperative Diagnosis: Internal arrangement left knee Postoperative Diagnosis: 1. Tear medial meniscus left knee 2. Grade 2 chondromalacia medial femoral condyle left knee 3. Reactive synovitis medial, lateral and suprapatellar compartments left knee Procedure(s) Performed: 1. Arthroscopic partial medial meniscectomy left knee 2. Arthroscopic chondroplasty medial femoral condyle left knee 3. Arthroscopic partial synovectomy medial, lateral and suprapatellar compartments left knee Anesthesia: LAURIEA, local Surgeon: Zuhair Haynes Estimated Blood Loss (ml): 7 Pathology: none sent Condition: stable Disposition: PACU Indications for Procedure: 45-year-old patient seen with progressive left knee pain. After treatment options were discussed, she elected to proceed with arthroscopy. Operative Findings: See description of procedure Description of Procedure: Patient was taken to the operative suite. Patient underwent a general anesthetic by the department of anesthesia. Patient was given preoperative antibiotics. The left lower extremity was placed in a well-padded arthroscopic leg babin. The left leg was prepped and draped in the normal sterile orthopedic fashion. A lateral parapatellar and suprapatellar incision was made. Trochars were inserted. Arthroscopy was initiated. Suprapatellar pouch revealed diffuse thick reactive synovitis. The patellofemoral joint appeared to articulate congruently. There was grade 1 chondromalacia of the patella without significant osteochondral tears present. The scope was guided into the medial gutter. Loose bodies or plica were identified. The scope was then guided into the medial compartment. A medial parapatellar incision was made. Trocar inserted followed by probe. There was a tear at the junction of the posterior and mid body medial meniscus. There were grade 2 chondromalacia changes of the medial femoral condyle with some osteochondral tears present. There was thick reactive synovitis anteriorly. I performed a partial medial meniscectomy getting down to stable meniscal tissue. I performed a chondroplasty of the medial femoral condyle getting down to stable osteochondral tissue. I performed a partial synovectomy decompressing the thick reactive synovitis. The shaver was removed. The residual meniscus was stable. The residual osteochondral surface was stable. There was good decompression of the synovitis. Scope and probe were then guided into the intercondylar notch. Cruciates were identified, probed and found to be stable. The scope and probe were then guided into lateral compartment. The lateral meniscus was probed and found to be stable. There was no chondromalacia involving lateral compartment. There was some thick reactive synovitis anteriorly. I introduced a motorized shaver and performed a partial synovectomy. Shaver was removed. There was good decompression of the synovitis. The scope was in guided back into the suprapatellar compartment. I introduced a motorized shaver into the super patellar compartment. I debrided some piecemeal fragments of meniscus I encountered. I performed a partial synovectomy. The shaver was removed. There was good decompression of the synovitis. I took one more look on the entire knee, no residual debris. Instruments were now removed from the joint. The joint was infiltrated with .25% Marcaine. Steri-Strips were applied to the portal sites. Sterile dressings were applied. The patient was placed into a DENI hose. No tourniquet was utilized. The patient was awakened, transferred to a bed and taken to recovery stable satisfactory condition.
[2021-02-05 14:04] VITALS: RESP 16; TEMP 97
[2021-02-05] MEDS ORDERED: LACTATED RINGERS 1,000 ML IV ONE (14:48)
[2021-02-05 15:12] VITALS: BP 121/76; PULSE 103
== END 2021-02-05 15:41 | disposition home or self-care (01) ==
LOC: OR 11:04
PROVIDERS: ATTEND Orthopaedic Surgery
DX: S83.242A Other tear of medial meniscus, current injury, left knee, initial encounter (principal); M94.262 Chondromalacia, left knee; M65.862 Other synovitis and tenosynovitis, left lower leg; J45.909 Unspecified asthma, uncomplicated; G47.33 Obstructive sleep apnea (adult) (pediatric); E07.9 Disorder of thyroid, unspecified; K21.9 Gastro-esophageal reflux disease without esophagitis; R20.2 Paresthesia of skin; Z79.899 Other long term (current) drug therapy; Z79.890 Hormone replacement therapy; Z86.73 Personal history of transient ischemic attack (TIA), and cerebral infarction without residual deficits
CPT/HCPCS: 29881; J2250; J1100; J2405; J2001; J3010; J1170 ×2; J1885; J0330; J2704

== ENCOUNTER → 2022-05-18 | Outpatient (CLI) | payer OTHER ==
[2022-05-18 17:59] LABS: HCT 43.2 % (37.2-46.3); MCH 33.5 pg (27.0-32.0); MCHC 32.4 g/dL (32.0-37.0); MCV 103.3 fL (80.0-97.0); Mean Platelet Volume 9.8 fL (9.5-12.2); NRBC Per 100 WBC 0 /100 WBCS (0.0-0.0); Platelet Count 285 X 10*3/uL (140-440); RBC 4.18 X 10*6/uL (4.10-5.20); RDW 11.9 % (11.5-14.5); WBC 7.22 X 10*3/uL (4.50-10.00)
[2022-05-18 18:43] LABS: African American GFR (CKD) 88.2 (60.0-200.0); Albumin 4.7 g/dL (3.8-4.9); Albumin/Globulin Ratio 1.74 (1.60-3.17); Anion Gap 10.2 mmol/L (10.00-18.00); BUN/Creat Ratio 21.67 Ratio (12.00-20.00); Blood Urea Nitrogen 19.5 mg/dL (9.0-27.0); Calcium 9.9 mg/dL (8.7-10.3); Carbon Dioxide 20.8 mmol/L (20.0-27.5); Globulin 2.7 g/dL (1.6-3.3); Non-African American GFR(CKD) 76.1 (60.0-200.0); Potassium 5.1 mmol/L (3.5-5.5); T4, Free (Free Thyroxine) 0.92 ng/dL (0.800-1.800); Total Bilirubin 0.2 mg/dL (0.30-1.20); Total Protein 7.4 g/dL (6.2-8.2)
== END | disposition home or self-care (01) ==
LOC: LABWHC1 11:23
PROVIDERS: ATTEND Psychiatry & Neurology Neurology
DX: I49.9 Cardiac arrhythmia, unspecified (principal); H02.409 Unspecified ptosis of unspecified eyelid; R53.83 Other fatigue
CPT/HCPCS: 36415; 80053; 84439; 84443; 84481; 85027; 93005

== ENCOUNTER → 2023-03-18 | Outpatient (CLI) | payer OTHER | END | disposition home or self-care (01) | LOC: LABWHC1 13:37 | PROVIDERS: ATTEND Psychiatry & Neurology Neurology | DX: I49.9 Cardiac arrhythmia, unspecified (principal) | CPT/HCPCS: 36415; 93005 ==

== ENCOUNTER → 2024-08-08 | Day surgery (SDC) | payer OTHER ==
[~2024-08-08] MED LIST changes: -CLINDAMYCIN 900 MG in DEXTROSE 5% IN WATER 50 ML IVPB PRN; -DEXAMETHASONE SOD PHOSPHATE 4 MG/ML 1 ML VIAL IV ONE; -HYDROmorphone 0.5 MG/0.5 ML SYRINGE IVP PRN; -LACTATED RINGERS 1,000 ML IV SCH; +LIDOCAINE 1% INJ 10MG/ML (20 ML MDV) ONE; -ONDANSETRON 4 MG/2 ML VIAL IVP ONE; +PROPOFOL 10 MG/ML 20 ML VIAL IV ONE
[2024-08-08] MEDS: IV FLUID CONTINUATION 1,000 ML IV ONE (10:32)
[2024-08-08 10:34] VITALS: RESP 18; TEMP 97.2
[2024-08-08] MEDS: LACTATED RINGERS 1,000 ML IV SCH (10:43)
--- NOTE | 2024-08-08 11:14 | P.PCN ---
Date of Procedure: 08/08/24 Procedure(s) Performed: BRIEF HISTORY: Patient is a 48-year-old pleasant white female scheduled for an elective colonoscopy as a part of evaluation of intermittent rectal bleeding for the last 6 months duration. PROCEDURE PERFORMED: Colonoscopy. PREOPERATIVE DIAGNOSIS: Intermittent rectal bleeding. IV sedation per Anesthesia. PROCEDURE: After informed consent was obtained, the patient, was brought into the endoscopy unit. IV sedation was administered by Anesthesia under continuous monitoring. Digital rectal examination was normal. Initially the Olympus CF-160 flexible video colonoscope was then inserted in the rectum, gradually advanced into the cecum without any difficulty. Careful examination was performed as the scope was gradually being withdrawn. Ileocecal valve and the appendiceal orifice were visualized and appeared normal. Prep was excellent. Mucosa of the cecum, ascending colon, transverse colon, descending colon, sigmoid colon, and rectum appeared normal. Retroflexion was performed in the rectum and small internal hemorrhoids were seen. The patient tolerated the procedure well. IMPRESSION: Normal-appearing colon from rectum to cecum with no evidence of colitis or colorectal neoplasia Small internal hemorrhoids. RECOMMENDATIONS: Findings of this examination were discussed with the patient as well as her family. She was advised to be on a high-fiber diet and take fiber supplements on a regular basis. Recommend repeat screening colonoscopy in 10 years.
[2024-08-08 12:06] VITALS: BP 110/77; PULSE 71
== END ==
LOC: ORWHC2ENDO 09:59
PROVIDERS: ATTEND Internal Medicine Gastroenterology
DX: K64.8 Other hemorrhoids (principal); E07.9 Disorder of thyroid, unspecified; M79.7 Fibromyalgia; J45.909 Unspecified asthma, uncomplicated; F60.3 Borderline personality disorder; F31.9 Bipolar disorder, unspecified; F41.9 Anxiety disorder, unspecified; F43.10 Post-traumatic stress disorder, unspecified; K58.9 Irritable bowel syndrome, unspecified; F90.9 Attention-deficit hyperactivity disorder, unspecified type; Z79.891 Long term (current) use of opiate analgesic; Z79.899 Other long term (current) drug therapy; Z88.1 Allergy status to other antibiotic agents
CPT/HCPCS: 45378; J2003; J2704

== ENCOUNTER 2024-08-10 13:09 | Emergency (ER) | payer OTHER ==
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
--- NOTE | 2024-08-10 14:50 | XR ---
EXAMINATION TYPE: XR lumbar spine 2 or 3V DATE OF EXAM: 08/10/2024 CLINICAL HISTORY: pain TECHNIQUE: Three views of the lumbar spine are submitted. COMPARISON: Lumbar spine radiographs 11/04/2017 FINDINGS: There are 5 lumbar type vertebral bodies identified. The lumbar spine shows satisfactory alignment w ithout evidence of acute fracture or dislocation. Straightening of the lumbar lordosis. Anterior oste ophytosis of the lower lumbar spine which is most pronounced at L3-L4. Vertebral body heights are wit hin normal limits. Multilevel disc space narrowing with endplate sclerosis of the lower lumbar spin e. Additional involvement of the lower thoracic spine. The overlying soft tissue appears unremarkabl e. Cholecystectomy clips in the right upper quadrant. IMPRESSION: 1. No acute fracture. 2. Mild multilevel degenerative disc disease. [facility], , 08/10/2024 2:48 PM
[2024-08-10] MEDS: LIDOCAINE 4% PATCH TOPICAL ONE (16:04)
[2024-08-10] MEDS: methylPREDNISolone SOD SUCCI 125 MG/2 ML VIAL IM ONE (16:06)
[2024-08-10] MEDS: ORPHENADRINE 30 MG/ML 2 ML VIAL IM STA (16:07)
[2024-08-10 16:16] VITALS: BP 112/74; PULSE 61; RESP 20; TEMP 98.3
== END 2024-08-10 16:16 | disposition home or self-care (01) ==
LOC: EC 13:09
DX: S33.5XXA Sprain of ligaments of lumbar spine, initial encounter (principal); S39.012A Strain of muscle, fascia and tendon of lower back, initial encounter; Z88.0 Allergy status to penicillin; Z88.1 Allergy status to other antibiotic agents; Z88.2 Allergy status to sulfonamides; Z86.73 Personal history of transient ischemic attack (TIA), and cerebral infarction without residual deficits; X50.9XXA Other and unspecified overexertion or strenuous movements or postures, initial encounter
CPT/HCPCS: 72100; 99283; 96372 ×2; J2360; J2919